=== PATIENT | male | born 1945 | race Caucasian/White ===

== ENCOUNTER → 2019-11-01 12:08 | Outpatient (CLI) | payer MEDICARE, BC, SELFPAY ==
--- NOTE | 2019-11-01 12:14 | ECHOD_ITS ---
Reason For Study: AFib Procedure This was a 2D Doppler, Color Flow transthoracic echocardiogram. The exam was of adequate technical quality. Exam performed in department. Left Ventricle Normal LV size. Left ventricular systolic function is normal. The estimated ejection fraction is 55 %. Unable to assess diastolic dysfunction. No regional wall motion abnormalities noted. Right Ventricle Normal RV size. Normal systolic function. Atria The left atrium is severely enlarged. The right atrium is moderately enlarged. No doppler evidence for ASD. Mitral Valve There is no mitral annular calcification. Normal mitral valve. Moderate (2+) eccentric mitral valve insufficiency. Tricuspid Valve Normal tricuspid valve. Moderate (2+) tricuspid valve insufficiency. Right ventricular systolic pressure estimated to be 42 mmHg. Aortic Valve Trisinus/trileaflet aortic valve. Normal aortic valve. Trivial aortic valve insufficiency. Pulmonic Valve The pulmonic valve is not well visualized. Great Vessels Borderline enlarged aortic root. Pericardium/Pleural No pericardial effusion. MMode/2D Measurements & Calculations LVIDd: 5.0 cm IVSd: 1.3 cm Ao root diam: 3.9 cm LVIDs: 3.5 cm LVPWd: 1.4 cm LA dimension: 4.8 cm FS: 28.7 % LAV(MOD-bp): 129.7 ml LA A4 area: 34.0 cm2 RA A4 area: 28.1 cm2 LAV(MOD-bp) Indexed: 56.8 ml/m2 LAV(MOD-sp2): 126.1 ml LAV(MOD-sp4): 130.6 ml Time Measurements MV dec time: 0.24 sec Doppler Measurements & Calculations MV E max emily: 112.5 cm/sec MV V2 max: 131.4 cm/sec MV P1/2t max emily: 131.4 cm/sec MV max P.9 mmHg MV P1/2t: 59.3 msec MV V2 mean: 55.3 cm/sec MV dec slope: 648.5 cm/sec2 MV mean P.6 mmHg MVA(P1/2t): 3.7 cm2 MV V2 VTI: 27.5 cm Ao V2 max: 88.4 cm/sec LV V1 max: 64.1 cm/sec MR max emily: 512.7 cm/sec Ao max P.1 mmHg LV V1 max P.7 mmHg MR max P.2 mmHg MR mean emily: 393.6 cm/sec MR mean P.7 mmHg MR VTI: 161.3 cm PA V2 max: 93.4 cm/sec TR max emily: 289.8 cm/sec TR max P.6 mmHg Interpretation Summary Left ventricular systolic function is normal. The estimated ejection fraction is 55 %. The left atrium is severely enlarged. The right atrium is moderately enlarged. Moderate (2+) eccentric mitral valve insufficiency. Moderate (2+) tricuspid valve insufficiency. Trivial aortic valve insufficiency. Borderline enlarged aortic root. Right ventricular systolic pressure estimated to be 42 mmHg. Unable to assess diastolic dysfunction. Ordering Physician: Khang Richard Referring Physician: Khang Richard Performed By: Ozzie Teran RCS
== END ==
PROVIDERS: PCP Family Medicine; Referring Provider Internal Medicine Cardiovascular Disease; Visit Provider Internal Medicine Cardiovascular Disease
DX: I48.19 Other persistent atrial fibrillation (principal)
CPT/HCPCS: 93306

== ENCOUNTER → 2021-09-17 | Outpatient (CLI) | payer MEDICARE, BC, SELFPAY | END | disposition home or self-care (01) | LOC: PSN 10:51 | PROVIDERS: PCP Family Medicine; Visit Provider Internal Medicine Cardiovascular Disease | DX: R00.1 Bradycardia, unspecified (principal); I48.11 Longstanding persistent atrial fibrillation; I49.8 Other specified cardiac arrhythmias; I34.0 Nonrheumatic mitral (valve) insufficiency; I34.1 Nonrheumatic mitral (valve) prolapse; I36.1 Nonrheumatic tricuspid (valve) insufficiency | CPT/HCPCS: 93225; 93226 ==

== ENCOUNTER → 2021-09-24 | Outpatient (CLI) | payer MEDICARE, BC, SELFPAY ==
--- NOTE | 2021-09-24 12:52 | ECHOD_ITS ---
Reason For Study: ATRIAL FIB/FLUTTER Procedure This was a 2D Doppler, Color Flow transthoracic echocardiogram. Exam performed in department. Left Ventricle Normal LV size. Left ventricular systolic function is normal. The estimated ejection fraction is 55 %. Stage 3 diastolic dysfunction. No regional wall motion abnormalities noted. Right Ventricle Normal RV size. Normal systolic function. Atria The left atrium is moderately enlarged. Normal right atrium. Mitral Valve Trivial mitral valve insufficiency. Status post mitral valve repair with annuloplasty ring. Tricuspid Valve Normal tricuspid valve. Unable to estimate RV systolic pressure due to inadequate jet, pulmonary artery pressure probably normal. Aortic Valve Trisinus/trileaflet aortic valve. Mild (1+) aortic valve insufficiency. Pulmonic Valve Normal pulmonic valve. Great Vessels Normal aortic root. The pulmonary artery is normal size. Normal inferior vena cava. Pericardium/Pleural No pericardial effusion. MMode/2D Measurements & Calculations LVIDd: 4.8 cm IVSd: 1.2 cm Ao root diam: 3.6 cm LVIDs: 3.1 cm LVPWd: 0.99 cm RVDd: 4.0 cm FS: 36.2 % LAV(MOD-bp): 93.3 ml LVAd ap4: 32.7 cm2 SV(MOD-sp4): 58.5 ml LAV(MOD-bp) Indexed: 41.3 ml/m2 LVLd ap4: 8.7 cm LAV(MOD-sp2): 92.0 ml EDV(MOD-sp4): 106.1 ml LAV(MOD-sp4): 89.5 ml EDV(sp4-el): 104.1 ml LVAs ap4: 19.4 cm2 LVLs ap4: 7.2 cm ESV(MOD-sp4): 47.6 ml ESV(sp4-el): 44.2 ml EF(MOD-sp4): 55.1 % EF(sp4-el): 57.5 % SV(sp4-el): 59.9 ml LA A4 area: 27.5 cm2 LA dimension(2D): 4.5 cm RA A4 area: 16.9 cm2 Doppler Measurements & Calculations MV E max rizwan: 132.2 cm/sec Lat Peak E' Rizwan: 8.3 cm/sec Med Peak E' Rizwan: 6.3 cm/sec MV A max rizwan: 67.1 cm/sec E/E' lat: 16.0 E/E' med: 21.1 MV E/A: 2.0 MV V2 max: 146.4 cm/sec MV P1/2t max rizwan: 136.8 cm/sec Ao V2 max: 131.6 cm/sec MV max P.6 mmHg MV P1/2t: 133.1 msec Ao max P.9 mmHg MV V2 mean: 78.0 cm/sec MV mean P.8 mmHg MV dec slope: 300.8 cm/sec2 MV V2 VTI: 46.6 cm MVA(P1/2t): 1.7 cm2 LV V1 max: 92.6 cm/sec PA V2 max: 132.9 cm/sec LV V1 max P.4 mmHg ECHO/Echo Complete Interpretation Summary Normal LV size. Left ventricular systolic function is normal. The estimated ejection fraction is 55 %. Stage 3 diastolic dysfunction. The left atrium is moderately enlarged. Status post mitral valve repair with annuloplasty ring. Ordering Physician: Josr Levine Referring Physician: MD Bony Wayne Performed By: America Hu RCS
== END | disposition home or self-care (01) ==
LOC: CVS 12:51
PROVIDERS: PCP Family Medicine; Visit Provider Internal Medicine Cardiovascular Disease
DX: I36.1 Nonrheumatic tricuspid (valve) insufficiency (principal)
CPT/HCPCS: 93306

== ENCOUNTER → 2023-10-29 | Outpatient (CLI) | payer MEDICARE, BC, SELFPAY ==
--- NOTE | 2023-10-29 09:41 | ECHOD_ITS ---
Reason For Study: POSTPROCEDURAL STATE Procedure This was a 2D Doppler, Color Flow transthoracic echocardiogram. Exam performed in department. Left Ventricle Normal LV size. Mild concentric left ventricular hypertrophy. The left ventricular ejection fraction is 55 %. No regional wall motion abnormalities noted. Right Ventricle Normal RV size. Normal systolic function. Atria The left atrium is moderately enlarged. The right atrium is mildly enlarged. Mitral Valve Status post mitral valve repair with annuloplasty ring. Tricuspid Valve Normal tricuspid valve. Mild tricuspid valve insufficiency. Pulmonary artery systolic pressure is 28 mmHg. Aortic Valve Trisinus/trileaflet aortic valve. Mild (1+) aortic valve insufficiency. Pulmonic Valve Normal pulmonic valve. Great Vessels Normal aortic root. The pulmonary artery is normal size. Normal inferior vena cava. Pericardium/Pleural No pericardial effusion. Medication 22 gauge I.V. with prn adaptor inserted into right arm. Performed a rapid injection of agitated mix of 9 cc saline and 1cc air to assess for atrial septal defect. MMode/2D Measurements & Calculations LVIDd: 4.7 cm IVSd: 1.3 cm Ao root diam: 3.9 cm LVIDs: 3.0 cm LVPWd: 1.5 cm RVDd: 4.4 cm FS: 35.8 % LAV(MOD-bp): 111.9 ml LVAd ap4: 29.5 cm2 SV(MOD-sp4): 56.6 ml LAV(MOD-bp) Indexed: 49.0 ml/m2 LVLd ap4: 9.0 cm LAV(MOD-sp2): 100.2 ml EDV(MOD-sp4): 95.0 ml LAV(MOD-sp4): 109.6 ml EDV(sp4-el): 82.2 ml LVAs ap4: 16.9 cm2 LVLs ap4: 7.4 cm ESV(MOD-sp4): 38.3 ml ESV(sp4-el): 32.7 ml EF(MOD-sp4): 59.6 % EF(sp4-el): 60.3 % SV(sp4-el): 49.6 ml LA A4 area: 31.8 cm2 LA dimension(2D): 4.9 cm RA A4 area: 23.3 cm2 TAPSE: 1.8 cm Time Measurements MV dec time: 0.22 sec Doppler Measurements & Calculations MV E max rizwan: 128.9 cm/sec Lat Peak E' Rizwan: 7.3 cm/sec Med Peak E' Rizwan: 5.3 cm/sec MV A max rizwan: 69.6 cm/sec E/E' lat: 17.8 E/E' med: 24.1 MV E/A: 1.9 MV V2 max: 131.6 cm/sec MV dec slope: 578.5 cm/sec2 Ao V2 max: 131.7 cm/sec MV max P.9 mmHg Ao max P.0 mmHg MV V2 mean: 86.5 cm/sec Ao V2 mean: 90.9 cm/sec MV mean P.4 mmHg Ao mean P.8 mmHg MV V2 VTI: 38.7 cm Ao V2 VTI: 26.8 cm AV (velocity ratio): 0.82 LV V1 max: 103.5 cm/sec PA V2 max: 105.8 cm/sec TR max rizwan: 241.9 cm/sec LV V1 max P.3 mmHg PA V2 mean: 73.4 cm/sec TR max P.4 mmHg LV V1 mean P.1 mmHg LV V1 mean: 66.0 cm/sec LV V1 VTI: 22.1 cm ECHO/Echo Complete Interpretation Summary Status post mitral valve repair with annuloplasty ring. Normal LV size. Mild concentric left ventricular hypertrophy. The left ventricular ejection fraction is 55 %. The left atrium is moderately enlarged. Pulmonary artery systolic pressure is 28 mmHg. Ordering Physician: Wayne Nassar Referring Physician: Wayne Nassar Performed By: America Hu RCS
== END | disposition home or self-care (01) ==
LOC: CVS 09:36
PROVIDERS: PCP Family Medicine; Referring Provider Nurse Practitioner Family; Visit Provider Nurse Practitioner Family
DX: I10 Essential (primary) hypertension (principal); E78.5 Hyperlipidemia, unspecified; Z98.890 Other specified postprocedural states; Z95.2 Presence of prosthetic heart valve
CPT/HCPCS: 93306

== ENCOUNTER → 2024-02-19 | Outpatient (CLI) | payer MEDICARE, BC, SELFPAY ==
--- NOTE | 2024-02-19 14:40 | RAD_ITS ---
EXAM: XR CHEST, 2 VIEWS CLINICAL INDICATION: CSA, A-FIB TECHNIQUE: Frontal and lateral views of the chest. COMPARISON: 04/13/2007. FINDINGS: LUNGS AND PLEURAL SPACES: Unremarkable. No consolidation or edema. No pneumothorax. No effusion. HEART: Left atrial appendage clamp. Normal heart size. MEDIASTINUM: Central airways and mediastinal contour are unremarkable. BONES/JOINTS: Sternal wires. Right total shoulder arthroplasty. Components appear well seated. No acute fracture. SOFT TISSUES: Unremarkable. RAD/Chest PA and Lateral IMPRESSION: No acute cardiopulmonary abnormality. Electronically Signed: Aston Dominguez MD at 3:01 EDT ,
== END | disposition home or self-care (01) ==
LOC: RAD 14:35
PROVIDERS: PCP Family Medicine; Referring Provider Internal Medicine Pulmonary Disease; Visit Provider Internal Medicine Pulmonary Disease
DX: G47.31 Primary central sleep apnea (principal); I48.91 Unspecified atrial fibrillation
CPT/HCPCS: 71046